=== PATIENT | female | born 1960 | race Caucasian/White ===

== ENCOUNTER → 2025-01-06 | Outpatient (CLI) | payer OTHER ==
[~2025-01-06] MED LIST: AMLO-258 PO; ASPI-1443 PO; ATOR40TA69 PO; GLIP10TA16 PO; HYDR25TA PO; ISOS30TA92 PO; LISI1TAB53 PO; LOSA-420 PO; METF-446 PO; METO25 PO
--- NOTE | 2025-01-06 09:31 | HMCIMG ---
CT calcium scoring Clinical Information: [facility] SCREENING Comparison: None CT Dose Index (CTDI): 13.30 mGy Dose Length Product (DLP): 186.18 total mGy-cm Findings: Calcium score 299.9. Moderate calcification. The CT scan is not a complete chest CT. Covered portion is reviewed for incidental findings. There is incidental finding of a benign calcified granuloma of the right lower lobe superior segment measuring 13 mm. IMPRESSION: Calcium score as above. Calcium score reference stable: 0: No identifiable calcification 1- 10: Minimal identifiable calcification 11-100: Mild calcification 101- 400: Moderate calcification 401 and above: Significant calcification Automated exposure control and adequate statistical iterative reconstructions were utilized as dose reduction techniques.
== END | disposition home or self-care (01) ==
LOC: RAH 08:44
PROVIDERS: ATTEND Internal Medicine Cardiovascular Disease
DX: Z13.6 Encounter for screening for cardiovascular disorders (principal)
CPT/HCPCS: 75571